=== PATIENT | male | born 1990 | race African-American/Black ===

== ENCOUNTER 2017-08-15 17:14 | Emergency (ER) | payer MEDICAID ==
[~2017-08-15] VITALS: Ht 182.9 cm; Wt 74.8 kg
[2017-08-15 18:08] VITALS: BP 109/68
[2017-08-15] MEDS ORDERED: KETOROLAC TROMETH 60MG/2ML VIAL IM ONE (18:30)
== END 2017-08-15 19:24 | disposition home or self-care (01) ==
LOC: ER 17:20
DX: S50.02XA Contusion of left elbow, initial encounter (principal); X50.0XXA Overexertion from strenuous movement or load, initial encounter; Y93.89 Activity, other specified; Y99.8 Other external cause status; Y92.89 Other specified places as the place of occurrence of the external cause
CPT/HCPCS: 73080; 73200; 96372; 99284; J1885

== ENCOUNTER 2018-04-13 10:48 | Emergency (ER) | payer MEDICAID ==
[~2018-04-13] VITALS: Ht 185.4 cm; Wt 63.5 kg
[2018-04-13 11:13] VITALS: BP 100/62
== END 2018-04-13 12:59 | disposition home or self-care (01) ==
LOC: ER 10:54
DX: N39.0 Urinary tract infection, site not specified (principal)